=== PATIENT | male | born 1980 | race Caucasian/White ===

== ENCOUNTER 2022-12-12 07:22 | Emergency (ER) | payer OTHER, SELFPAY ==
--- NOTE | 2022-12-12 07:25 | ED_ITS ---
HPI - General Adult General Chief complaint: Dental/Oral Stated complaint: FACIAL SWELLING Time Seen by Provider: 12/12/22 07:25 History of Present Illness HPI narrative: Patient presents to emergency department complaining of right facial swelling. Patient states he had upper dental pain 2 weeks ago. He saw his dentist had x- rays done and told that his teeth were fine. He is had issues with his sinuses in the past. He had a polyp and needed to have it removed but he did not follow-up with the ENT. Patient states in the last week he started noticing and tiny amount of swelling but in the last 2 days it has worsened. He went to urgent care and was started on Augmentin yesterday he has taken 2 doses. He was also given Claritin with decongestant and Flonase which she has been using. Patient is here today as swelling has progressed.He does not feel nasal congestion.He denies any drainage. Related Data Home Medications Medication Instructions Recorded Confirmed amoxicillin 875 mg-potassium 1 tab PO Q12H 12/12/22 12/12/22 clavulanate 125 mg tablet escitalopram oxalate 10 mg tablet 10 mg PO QDAY 12/12/22 12/12/22 fluticasone propionate 50 1 spray intranasal Q12H 12/12/22 12/12/22 mcg/actuation nasal spray,suspension Previous Rx's Medication Instructions Recorded clindamycin HCl 150 mg capsule 150 mg PO Q6H 10 days #40 caps 12/12/22 clindamycin HCl 300 mg capsule 300 mg PO Q6H 10 days #40 caps 12/12/22 hydrocodone 5 mg-acetaminophen 325 1 tab PO Q6H PRN pain 3 days #14 12/12/22 mg tablet tabs ibuprofen 800 mg tablet 800 mg PO Q8H PRN pain #20 tabs 12/12/22 Allergies Allergy/AdvReac Type Severity Reaction Status Date / Time No Known Drug Allergies Allergy Verified 12/12/22 07:35 Review of Systems ROS Status of ROS 10 or more systems reviewed and unremarkable except as noted in history and below Exam Narrative Exam Narrative: Nurses notes and vital signs reviewed and patient is not hypoxic. General: Nontoxic, Well-appearing and in no apparent distress. Skin: Warm, dry, no pallor noted. No Rash Head: Normocephalic, atraumatic. Neck: Supple, non-tender. Eye: Pupils are equal, round and EOMI. No scleral icterus. Ears, Nose, Mouth, and Throat: TM clear, no posterior oropharynx erythema or nasal mucosal hypertrophy, uvula is mid-line Oral mucosa is moist, There is no drainable abscess noted to the gums. There is fullness to the right axilla over 4-5-6.Tenderness is noted. There is puffiness extending superiorly to the infraorbital rim there is no erythema noted. There is no fluctuance noted. No trismus, no tongue elevation. Cardiovascular: Regular Rate and Rhythm without murmur, gallop or rub. Respiratory: No accessory muscle use or respiratory distress. Lungs are clear to auscultation, no wheezing, rales or rhonchi Chest Wall: no tenderness Back: No midline thoracic or lumbar vertebral tenderness. No CVA tenderness Musculoskeletal: normal ROM, no calf or popliteal tenderness, no lower extremity edema/swelling GI: Abdomen is soft, non-distended. Normal bowel sounds. No masses appreciated. No tenderness to palpation. No rebound, guarding, or rigidity noted. Neurological: A&O x4. No cranial nerve dysfunction observed. No truncal ataxia. Moves all extremities. Sensation intact. Psychiatric: Cooperative and interactive. Normal mood and affect. Constitutional Vital Signs, click to edit/add: Last Vital Signs Temp 98.2 F 12/12/22 07:32 Pulse 82 12/12/22 07:32 Resp 18 12/12/22 07:32 BP 156/96 H 12/12/22 07:32 Pulse Ox 98 12/12/22 07:32 O2 Del Method Room Air 12/12/22 07:32 Course Vital Signs Vital signs: Vital Signs Temperature 98.2 F 12/12/22 07:32 Pulse Rate 82 12/12/22 07:32 Respiratory Rate 18 12/12/22 07:32 Blood Pressure 156/96 H 12/12/22 07:32 Pulse Oximetry 98 12/12/22 07:32 Oxygen Delivery Method Room Air 12/12/22 07:32 Temperature 98.2 F 12/12/22 07:32 Pulse Rate 82 12/12/22 07:32 Respiratory Rate 18 12/12/22 07:32 Blood Pressure 156/96 H 12/12/22 07:32 Pulse Oximetry 98 12/12/22 07:32 Oxygen Delivery Method Room Air 12/12/22 07:32 Medical Decision Making MDM Narrative Medical decision making narrative: Patient had an IV established and given clindamycin 900 mg IV. The patient had a CT scan of the facial bones with IV contrast which shows: Patient Name: MALINDA SORIANO MRN: [id number] date: 1980 Sex: M Assigned Patient Location: ER Current Patient Location: ED.MAIN Accession/Order Number: [id number] Exam Date: 12/12/2022 08:12 Report Date: 12/12/2022 08:39 At the request of: CISCO MAXWELL Procedure: CT facial bones w con CT facial bones w con, 12/12/2022 8:12 AM EDT, [facility]001 INDICATION: r facial swelling COMPARISON: CT of the sinuses from 07/23/2021.. TECHNIQUE: CT examination of the maxillofacial region is performed with administration of water soluble intravenous contrast. Axial images were obtained with reconstructions in the sagittal and coronal planes. Dose reduction techniques were achieved by using automated exposure control and/or adjustment of mA and /or kV according to patient size and/or use of iterative reconstruction technique. FINDINGS: No acute fracture is identified. There has been development of focal lucency surrounding the roots of the right maxillary incisor and first bicuspid, which can be seen with periapical abscess. There is thickening of the overlying soft tissues, without drainable fluid collection. There is also swelling of the superficial soft tissues with mild increased density consistent with cellulitis. There is moderate mucosal thickening in the right maxillary antrum, increased compared to the prior study. A polyp or mucous retention cyst is again seen in the inferior aspect of the left maxillary antrum. There is slight mucosal thickening in the anterior ethmoid air cells. No fluid levels are identified. The mandible and temporomandibular joints appear unremarkable. The orbital soft tissues are within normal limits. No radiopaque foreign bodies are identified. IMPRESSION: There is lucency surrounding the roots of the right maxillary incisor and first bicuspid which can be seen with periapical abscess. There is also evidence of overlying phlegmon and cellulitis without drainable fluid collection. Mild paranasal sinus disease, increased within the right maxillary antrum. Electronically authenticated by: FRANCI NARAYAN Date: 12/12/2022 08:39 all results discussed with patient. Patient Is nontoxic. He'll be given a prescription for clindamycin 450 mg every 6 hours. Patient is prescribed ibuprofen 800 mg and [place]. Patient is advised follow-up with dentist, and ENT as scheduled. At this time the patient is without objective evidence of an acute process requiring hospitalization or inpatient management. The patient has remained hemodynamically stable. No additional indication for emergent studies at this time. I answered all questions. Discussed discharge instructions including standard anticipatory guidance and what should prompt a return to the emergency department, including if they get worse are not getting better or develops any new or concerning symptoms. I've given them specific time frame in which to follow-up, and who to follow-up with. The patient demonstrates understanding. Patient is nontoxic and stable for discharge with outpatient follow-up. This note was created with the assistance of a speech recognition program. Although the intention is to generate documents that actually reflects the co ntent of the visit, no guarantees can be provided that every mistake has been identified and corrected by editing. Discharge Plan Discharge Chief Complaint: Dental/Oral Clinical Impression: Cellulitis and abscess of face, Dental abscess Patient Disposition: Home, Self-Care Time of Disposition Decision: 08:47 Condition: Good Mode of Transportation: Private Vehicle Prescriptions / Home Meds: New clindamycin HCl 150 mg capsule 150 mg PO Q6H 10 Days Qty: 40 0RF clindamycin HCl 300 mg capsule 300 mg PO Q6H 10 Days Qty: 40 0RF ibuprofen 800 mg tablet 800 mg PO Q8H PRN (Reason: pain) Qty: 20 0RF hydrocodone-acetaminophen 5-325 mg tablet 1 tab PO Q6H PRN (Reason: pain) 3 Days Qty: 14 0RF No Action amoxicillin-pot clavulanate 875-125 mg tablet 1 tab PO Q12H escitalopram oxalate 10 mg tablet 10 mg PO QDAY fluticasone propionate 50 mcg/actuation spray,suspension 1 spray INTRANASAL Q12H Instructions: Dental Abscess (ED), Cellulitis (ED) Additional Instructions: Follow-up with the dentist next week. Stand Alone Forms: Portal Instructions Referrals: Eduardo Andino DO [Primary Care Provider] - 1 week
[2022-12-12 07:32] VITALS: BP 156/96; PULSE 82; RESP 18; TEMP 36.8; O2SAT 98; BMI 20.9
[2022-12-12] MEDS: KETOROLAC TROMETHAMINE 30 MG/ML VIAL IVP (07:58)
[2022-12-12] MEDS: CLINDAMYCIN PHOSPHATE/D5W 900 MG/50 ML PIGGYBACK 100 MG IV (08:18)
--- NOTE | 2022-12-12 08:19 | CT_ITS ---
The [address] [address] Patient Name: MALINDA SORIANO MRN: [id number] date: 1980 Sex: M Assigned Patient Location: ER Current Patient Location: ED.MAIN Accession/Order Number: [id number] Exam Date: 12/12/2022 08:12 Report Date: 12/12/2022 08:39 At the request of: CISCO MAXWELL Procedure: CT facial bones w con CT facial bones w con, 12/12/2022 8:12 AM EDT, [facility]001 INDICATION: r facial swelling COMPARISON: CT of the sinuses from 07/23/2021.. TECHNIQUE: CT examination of the maxillofacial region is performed with administration of water soluble intravenous contrast. Axial images were obtained with reconstructions in the sagittal and coronal planes. Dose reduction techniques were achieved by using automated exposure control and/or adjustment of mA and /or kV according to patient size and/or use of iterative reconstruction technique. FINDINGS: No acute fracture is identified. There has been development of focal lucency surrounding the roots of the right maxillary incisor and first bicuspid, which can be seen with periapical abscess. There is thickening of the overlying soft tissues, without drainable fluid collection. There is also swelling of the superficial soft tissues with mild increased density consistent with cellulitis. There is moderate mucosal thickening in the right maxillary antrum, increased compared to the prior study. A polyp or mucous retention cyst is again seen in the inferior aspect of the left maxillary antrum. There is slight mucosal thickening in the anterior ethmoid air cells. No fluid levels are identified. The mandible and temporomandibular joints appear unremarkable. The orbital soft tissues are within normal limits. No radiopaque foreign bodies are identified. CT/CT facial bones w con IMPRESSION: There is lucency surrounding the roots of the right maxillary incisor and first bicuspid which can be seen with periapical abscess. There is also evidence of overlying phlegmon and cellulitis without drainable fluid collection. Mild paranasal sinus disease, increased within the right maxillary antrum. Electronically authenticated by: FRANCI NARAYAN Date: 12/12/2022 08:39
== END 2022-12-12 09:03 | disposition home or self-care (01) ==
PROVIDERS: Emergency Provider Emergency Medicine; PCP Internal Medicine
DX: L03.211 Cellulitis of face (principal); L02.01 Cutaneous abscess of face; K04.7 Periapical abscess without sinus; Z79.899 Other long term (current) drug therapy
CPT/HCPCS: 70487; 96365; 96375; 99285; Q9967

== ENCOUNTER 2023-10-15 10:12 | Outpatient (OUT) | payer BC, SELFPAY ==
[2023-10-15 10:31] LABS: Basophils Absolute Auto 0.1 10^3/uL (0.0-0.1); Basophils Percent Auto 1.2 % (0.2-2.0); Eosinophils Absolute Auto 0.2 10^3/uL (0.0-0.7); Eosinophils Percent Auto 3.3 % (0.9-7.0); Hematocrit 40.3 % (42.0-54.0); Hemoglobin 13.4 g/dL (14.0-18.0); Immature Granulocytes Abs Auto 0.02 10^3/uL (0.00-0.03); Immature Granulocytes Pct Auto 0.3 % (0.0-0.5); Lymphocytes Absolute Auto 1.9 10^3/uL (1.2-3.8); Lymphocytes Percent Auto 33.4 % (20.5-60.0); Mean Corpuscular HGB Conc 33.3 g/dL (29.9-35.2); Mean Corpuscular Hemoglobin 30.8 pg (25.9-34.0); Mean Corpuscular Volume 92.6 fL (80.0-94.0); Mean Platelet Volume 10.1 fL (9.5-13.5); Monocytes Absolute Auto 0.5 10^3/uL (0.3-0.8); Monocytes Percent Auto 9.1 % (1.7-12.0); Neutrophils Absolute Auto 3.1 10^3/uL (1.4-6.5); Neutrophils Percent Auto 52.7 % (43.0-75.0); Platelet Count 227 10^3/uL (150-450); Red Blood Count 4.35 10^6/uL (4.70-6.10); Red Cell Distribution Width 12.5 % (11.0-15.0); White Blood Count 5.8 10^3/uL (4.0-11.0)
[2023-10-15 11:48] LABS: Alanine Aminotransferase 32 U/L (16-63); Albumin Globulin Ratio 1.1; Albumin Level 3.9 g/dL (3.4-5.0); Alkaline Phosphatase 87 U/L (46-116); Anion Gap 9.4; Aspartate Amino Transferase 23 U/L (15-37); BUN Creatinine Ratio 21.1; Bilirubin Total 0.4 mg/dL (0.2-1.0); Calcium 8.9 mg/dL (8.5-10.1); Carbon Dioxide 30.6 mmol/L (21.0-32.0); Chloride 103 mmol/L (98-107); Chol HDL Ratio 2.5; Cholesterol 169 mg/dL (<=200); Estimated GFR (African America >60 (>=60); Estimated GFR (Non-African Ame >60 (>=60); Globulin 3.5 g/dL; Glucose 92 mg/dL (74-106); HDL Cholesterol 68 mg/dL (40-60); Sodium 139 mmol/L (136-145); Total Protein 7.4 g/dL (6.4-8.2); Triglycerides 30 mg/dL (<=150)
== END 2023-10-15 10:13 | disposition home or self-care (01) ==
LOC: LAB 10:14
PROVIDERS: PCP Internal Medicine; Visit Provider Internal Medicine
DX: Z00.00 Encounter for general adult medical examination without abnormal findings (principal)
CPT/HCPCS: 36415; 80053; 80061; 85025

== ENCOUNTER 2023-11-02 07:52 | Outpatient (OUT) | payer BC, SELFPAY ==
--- NOTE | 2023-11-02 07:55 | CT_ITS ---
The [address] [address] Patient Name: MALINDA SORIANO MRN: [facility]:[id number] date: 1980 Sex: M Assigned Patient Location: CT Current Patient Location: Accession/Order Number: [id number] Exam Date: 11/02/2023 08:03 Report Date: 11/03/2023 05:47 At the request of: CHANTE ROMERO Procedure: CT sinus wo con EXAMINATION: CT sinus wo con HISTORY: Sinusitis COMPARISON: CT facial bones 12/12/2022 TECHNIQUE: Axial and Coronal CT images were created without and/or with IV contrast as indicated by examination type. Dose reduction techniques were achieved by using automated exposure control and/or adjustment of mA and/or kV according to patient size and/or use of iterative reconstruction technique. FINDINGS: MAXILLARY SINUSES: Mild mucosal thickening within right maxillary sinus. 2.4 cm mucocele versus retention cyst within left maxillary sinus without appreciable mucosal thickening. Patent but narrowed ostia. No significant anomalous inferior orbital ethmoid (Chandrika) air cells. ETHMOID SINUSES: No significant mucosal thickening or fluid. Fovea ethmoidali and lamina papyracea are symmetric and intact. SPHENOID SINUSES: No significant mucosal thickening or fluid. Sphenoethmoidal recesses are patent. No bony dehiscence. FRONTAL SINUSES: No significant mucosal thickening or fluid. Frontal recesses are patent. NASAL FOSSA: 4 mm leftward deviation of the nasal septum. No franklin bullosa or paradoxical turbinates are identified. OTHER: Negative. Limited views of the skull base and orbits are unremarkable. CT/CT sinus wo con IMPRESSION: 1. Bilateral maxillary chronic sinusitis; significantly improved. Electronically authenticated by: FREEMAN MCBRIDE Date: 11/03/2023 05:47
--- OUTSIDE RECORDS SUMMARY | 2023-11-02 07:56 | XMS_ITS | CCD ---
Author Organization [facility] Care Team Providers Care Block And Case Maker Name Role Phone SINA, DR SHARIF Primary Care Unavailable BALL, DR SHARIF Admitting Unavailable BALL, DR SHARIF Attending Unavailable BALL, DR SHARIF Consulting Unavailable ZIEBER, DR FREEMAN Pearson Consulting Unavailable TIMMIS, DR INGRAM Attending Unavailable TIMMIS, DR INGRAM Consulting Unavailable BALL, DR SHARIF Primary Care Unavailable TIMMIS, DR INGRAM Admitting Unavailable ZIEBER, DR FREEMAN Pearson Consulting Unavailable BALL, DR SHARIF Primary Care Unavailable BALL, DR SHARIF Admitting Unavailable BALL, DR SHARIF Attending Unavailable BALL, DR SHARIF Consulting Unavailable BALL, DR SHARIF Primary Care Unavailable BALL, DR SHARIF Admitting Unavailable BALL, DR SHARIF Attending Unavailable BALL, DR SHARIF Consulting Unavailable BALL, DR SHARIF Consulting Unavailable BALL, DR SHARIF Primary Care Unavailable BALL, DR SHARIF Admitting Unavailable BALL, DR SHARIF Attending Unavailable CASSIDY Starks Attending Provider DO Eduardo Mills Primary Care Provider LANRE Garcia Attending Provider Ciara Garcia Attending Eduardo Cortes Primary Care UnavailVijaya Carter Attending Unavailable Dena Cornejo Unavailable Allergies Allergy Classification Reported Allergen(s) Allergy Type Date of Onset Reaction(s) Facility (2 sources) Sulfamethoxazole / Trimethoprim Drug Allergy 04-20-19 14 Unknown [facility] Repository (1 source) muscle relaxer; Translations: [muscle relaxer] Propensity to adverse reactions (disorder) 07-18-19 [facility] Repository (3 sources) meloxicam Drug Allergy 10-04-19 24 rash [facility] (1 source) patient allergy list reviewed by nurse or physicia Propensity to adverse reactions 09-22-19 Comment:Done [email or web address] Other (2 sources) Sulfamethoxazole Drug Allergy 10-04-19 24 Unknown Reaction [facility] (2 sources) Trimethoprim Drug Allergy 10-04-19 24 Unknown Reaction [facility] Medications Current Medications Medication Drug Class(es) Dates Sig (Normalized) Sig (Original) amoxicillin 875 mg / clavulanate 125 mg oral tablet (3 sources) Penicillin-class Antibacterial Start: 10-04-2023 take 1 tablet by mouth every twelve hours Amoxicillin-Pot Clavulanate Active 1 TAB PO Every 12 hours 23 01October 04, 2023 12:00am Start: 12-11-2022 take 1 tablet by dheeraj th every twelve hours Amoxicillin-Pot Clavulanate 875-125 MG 1 tablet Orally every 12 hrs for 10 days Dec, Active escitalopram 20 mg oral tablet (6 sources) Serotonin Reuptake Inhibitor Start: 09-25-2023 take 1 tablet by mouth once daily Escitalopram Oxalate Active 0 .ROUTE .COMPLEX September 25, 2023 1:09pm TAKE 1 TABLET BY MOUTH DAILY Start: 09-25-2023 End: 09-25-2023 take 20 mg by mouth once daily Escitalopram Oxalate Di scontinued 20 MG PO Daily September 25, 2023 12:00am September 25, 2023 1:09pm Start: 07-17-2022 take 20 mg by mouth once daily Escitalopram Oxalate Active 20 MG PO DAILY July 17, 2022 12:00am fluticasone propionate 0.05 mg/actuat metered dose nasal spray (1 source) Corticosteroid Start: 12-11-2022 take 2 spray(s) nasal route once daily Fluticasone Propionate 50 MCG/ACT 2 sprays in each nostril Nasally Once a day for 14 days Dec, Active Problems Active Problems Problem Classification Problem Date Documented Da te Episodic/Chronic Anxiety disorders (4 sources) Generalized anxiety disorder; Translations: [Generalized anxiety disorder] 10-04-2023 Chronic Blindness and vision defects (4 sources) Visual disturbance; Translations: [Other visual disturbances] 10-04-2023 Episodic Conditions associated with dizziness or vertigo (2 sources) Dizziness and giddiness; Translations: [Dizziness and giddiness] 10-04-2023 Episodic Deficiency and other anemia (5 sources) Anemia, unspecified; Translations: [ANEMIA UNSPECIFIED] Onset: 08-07-2021 Episodic Deficiency and other anemia (4 sources) Anemia; Translations: [Anemia, unspecified] 10-04-2023 Episodic Headache; including migraine (8 sources) Tension-type headache, unspecified, not intractable; Translations: [Tension-type headache] Onset: 04-29-2022 Chronic Headache; including migraine (1 source) Headache; Translations: [Headache, unspecified] Episodic Open wounds of head; neck; and trunk (2 sources) Laceration of head; Translations: [Laceration without foreign body of unspecified part of head, initial encounter] 07-21-2022 Episodic Osteoarthritis (3 sources) Localized, primary osteoarthritis of the hand; Translations: [Bilateral primary osteoarthritis of first carpometacarpal joints] Onset: 09-21-2017 10-04-2023 Chronic Other acquired deformities (1 source) Acquired deformity of left forearm; Translations: [Unspecified acquired deformity of left forearm] Episodic Other acquired deformities (2 sources) Acquired deformity of lower leg; Translations: [Unspecified acquired deformity of left lower leg] 10-04-2023 Episodic Other acquired deformities (2 sources) Acquired forearm deformity; Translations: [Unspecified acquired deformity of left forearm] 10-04-2023 Episodic Other ear and sense organ disorders (3 sources) Bilateral tinnitus; Translations: [Tinnitus, bilateral] 10-04-2023 Episodic Other gastrointestinal disorders (1 source) Bloating symptom; Translations: [Abdominal distension (gaseous)] Episodic Other gastrointestinal disorders (1 source) Abdominal bloating; Translations: [Abdominal distension (gaseous)] 10-04-2023 Episodic Other nervous system disorders (1 source) Carpal tunnel syndrome; Translations: [Carpal tunnel syndrome, right upper limb] Chronic Other nervous system disorders (2 sources) Carpal tunnel syndrome of right wrist; Translations: [Carpal tunnel syndrome, right upper limb] 10-04-2023 Chronic Other nervous system disorders (1 source) Impaired cognition; Translations: [Other symptoms and signs involving cognitive functions and awareness] Episodic Other nervous system disorders (2 sources) Anesthesia of skin; Translations: [Anesthesia of skin] 10-04-2023 Episodic Other nervous system disorders (1 source) Paresthesia; Translations: [Paresthesia of skin] Episodic Other nervous system disorders (1 source) Pins and needles; Translations: [Numbness and tingling in left arm] Episodic Other nervous system disorders (2 sources) Paresthesia of upper limb; Translations: [Anesthesia of skin] 10-04-2023 Episodic Other nutritional; endocrine; and metabolic disorders (3 sources) Overweight; Translations: [Overweight] 10-04-2023 Episodic Other screening for suspected conditions (not mental disorders or infectious disease) (1 source) Encounter for screening for malignant neoplasm of colon; Translations: [Special screening for malignant neoplasms of colon] 10-06-2023 Episodic Other upper respiratory infections (13 sources) Chronic maxillary sinusitis; Translations: [Chronic sinusitis, unspecified] Onset: 06-05-2021 Chronic Other upper respiratory infections (2 sources) Acute maxillary sinusitis; Translations: [Acute maxillary sinusitis, unspecified] Episodic Paralysis (1 source) Hemiplegia of nondominant side; Translations: [Unspecified hemiplegia affecting nondominant side] Chronic Spondylosis; intervertebral disc disorders; other back problems (2 sources) Cervical spondylosis without myelopathy; Translations: [Spondylosis without myelopathy or radiculopathy, cervical region] Onset: 09-21-2017 10-04-2023 Chronic Unclassified (1 source) Non-healing surgical wound; Translations: [Non-healing surgical wound] Viral infection (1 source) Viral disease; Translations: [Viral infection, unspecified] Episodic Past or Other Problems Problem Classification Problem Date Documented Da te Episodic/Chronic Abdominal pain (1 source) Right lower quadrant pain; Translations: [Right lower quadrant pain] Onset: 05-09-2015 Episodic Acute bronchitis (1 source) Acute bronchitis; Translations: [Acute bronchitis, unspecified] Onset: 2014 Episodic Nausea and vomiting (1 source) Nausea; Translations: [Nausea] Onset: 06-20-2013 Episodic Nonspecific chest pain (1 source) Chest pain; Translations: [Chest pain, unspecified] Onset: 2014 Episodic Other connective tissue disease (1 source) Myalgia/myositis - multiple; Translations: [Unspecified myalgia and myositis] Onset: 06-20-2013 Episodic Spondylosis; intervertebral disc disorders; other back problems (1 source) Low back pain; Translations: [Lumbago] Onset: 06-20-2014 Episodic Sprains and strains (1 source) Neck sprain; Translations: [Strain of muscle, fascia and tendon at neck level, initial encounter] Onset: 09-21-2017 Episodic Results Test Name Value Interpretation Reference Range Facil ity CBC AUTO DIFFon 04-29-2022 BASO # 0.0 103/ul Normal 0.0-0.1 [facility] Comment on above: Performed By: #### C BC #### [facility] [address] [address] [address] Alexander Sanchez Basophils/100 WBC (Bld) 0.6 % Normal 0.2-2.0 [facility] Comment on above: Performed By: #### C BC #### [facility] [address] [address] [address] Alexander Sanchez EO # 0.0 103/ul Normal 0.0-0.7 [facility] Comment on above: Performed By: #### C BC #### [facility] [address] [address] [address] Alexander Sanchez Eosinophils/100 WBC (Bld) 1.2 % Normal 0.9-7.0 [facility] Comment on above: Performed By: #### C BC #### [facility] [address] [address] [address] Alexander Sanchez Erythrocyte distribution width (RBC) [Ratio] 12.4 % Normal 11.0-15.0 [facility] Comment on above: Performed By: #### C BC #### [facility] [address] [place] [address] Dr. Alexander Sanchez Hematocrit (Bld) [Volume fraction] 39.4 % Critically low 42.0-54.0 [facility] Comment on above: Performed By: #### C BC #### [facility] [address] [address] [address] Alexander Sanchez Hemoglobin (Bld) [Mass/Vol] 13.5 g/dL Critically low 14.0-18.0 [facility] Comment on above: Performed By: #### C BC #### [facility] [address] [address] [address] Alexander Sanchez IG # 0.01 10e3/ul Normal 0.00-0.03 [facility] Comment on above: Performed By: #### C BC #### [facility] [address] [place] [address] Dr. Alexander Sanchez IG % 0.3 % Normal 0.0-0.5 [facility] Comment on above: Performed By: #### C BC #### [facility] [address] [place] [address] Dr. Alexander Sanchez LYMPH # 1.2 103/ul Normal 1.2-3.8 [facility] Comment on above: Performed By: #### C BC #### [facility] [address] [place] [address] Dr. Alexander Sanchez Lymphocytes/100 WBC (Bld) 38.1 % Normal 20.5-60.0 [facility] Comment on above: Performed By: #### C BC #### [facility] [address] [place] [address] Dr. Alexander Sanchez MANUAL DIFF REQ NO Normal [facility] Comment on above: Performed By: #### C BC #### [facility] [address] [place] [address] Dr. Alexander Sanchez MCH (RBC) [Entitic mass] 30.2 pg Normal 25.9-34.0 [facility] Comment on above: Performed By: #### C BC #### [facility] [address] [place] [address] Dr. Alexander Sanchez MCHC (RBC) [Mass/Vol] 34.3 g/dL Normal 29.9-35.2 [facility] Comment on above: Performed By: #### C BC #### [facility] [address] [place] [address] Dr. Alexander Sanchez MCV (RBC) [Entitic vol] 88.1 fL Normal 80.0-94.0 [facility] Comment on above: Performed By: #### C BC #### [facility] [address] [place] [address] Dr. Alexander Sanchez MONO # 0.4 103/ul Normal 0.3-0.8 [facility] Comment on above: Performed By: #### C BC #### [facility] [address] [place] [address] Dr. Alexander Sanchez Monocytes/100 WBC (Bld) 11.5 % Normal 1.7-12.0 [facility] Comment on above: Performed By: #### C BC #### [facility] [address] [place] [address] Dr. Alexander Sanchez NEUT # 1.6 103/ul Normal 1.4-6.5 [facility] Comment on above: Performed By: #### C BC #### [facility] [address] [place] [address] Dr. Alexander Sanchez Neutrophils/100 WBC (Bld) 48.3 % Normal 43.0-75.0 [facility] Comment on above: Performed By: #### C BC #### [facility] [address] [place] [address] Dr. Alexander Sanchez Platelet mean volume (Bld) [Entitic vol] 10.0 fL Normal 9.5-13.5 [facility] Comment on above: Performed By: #### C BC #### [facility] [address] [place] [address] Dr. Alexander Sanchez PLT 162 103/ul Normal 150-450 [facility] Comment on above: Performed By: #### C BC #### [facility] [address] [place] [address] Dr. Alexander Sanchez RBC 4.47 106/ul Critically low 4.70-6.10 [facility] Comment on above: Performed By: #### C BC #### [facility] [address] [place] [address] Dr. Alexander Sanchez WBC 3.2 103/ul Critically low 4.0-11.0 [facility] Comment on above: Performed By: #### C BC #### [facility] [address] [place] [address] Dr. Alexander Sanchez FERRITINon 04-29-2022 Ferritin [Mass/Vol] 414.0 ng/mL Critically high 26.0-388.0 [facility] Comment on above: Performed By: #### F ETIBC, FERR, B12FOL #### [facility] [address] [place] [address] Dr. Alexander Sanchez IRON AND TIBCon 04-29-2022 % SATURATION 44.3 % Normal [facility] Comment on above: Performed By: #### F ETIBC, FERR, B12FOL #### [facility] [address] [place] [address] Dr. Alexander Sanchez Iron [Mass/Vol] 131.0 ug/dL Normal 65.0-175.0 [facility] Comment on above: Performed By: #### F ETIBC, FERR, B12FOL #### [facility] [address] [place] [address] Dr. Alexander Sanchez TIBC DIRECT 296.0 ug/dL Normal 250.0-450.0 [facility] Comment on above: Performed By: #### F ETIBC, FERR, B12FOL #### [facility] [address] [place] [address] Dr. Alexander Sanchez VIT B12 AND FOLATEon 023 Cobalamin (Vitamin B12) [Mass/Vol] 627.0 pg/mL Normal 193.0-986.0 [facility] Comment on above: Performed By: #### F ETIBC, FERR, B12FOL #### [facility] [address] [place] [address] Dr. Alexander Sanchez FOLATE 10.50 ng/mL Normal 8.60-58.90 [facility] Comment on above: Performed By: #### F ETIBC, FERR, B12FOL #### [facility] [address] [place] [address] Dr. Alexander Sanchez CBC AUTO DIFFon 03-03-2022 BASO # 0.1 103/ul Normal 0.0-0.1 [facility] Comment on above: Performed By: #### C BC #### [facility] [address] [place] [address] Dr. Alexander Sanchez Basophils/100 WBC (Bld) 1.3 % Normal 0.2-2.0 [facility] Comment on above: Performed By: #### C BC #### [facility] [address] [place] [address] Dr. Alexander Sanchez EO # 0.1 103/ul Normal 0.0-0.7 [facility] Comment on above: Performed By: #### C BC #### [facility] [address] [place] [address] Dr. Alexander Sanchez Eosinophils/100 WBC (Bld) 2.6 % Normal 0.9-7.0 [facility] Comment on above: Performed By: #### C BC #### [facility] [address] [place] [address] Dr. Alexander Sanchez Erythrocyte distribution width (RBC) [Ratio] 12.7 % Normal 11.0-15.0 [facility] Comment on above: Performed By: #### C BC #### [facility] [address] [place] [address] Dr. Alexander Sanchez Hematocrit (Bld) [Volume fraction] 39.1 % Critically low 42.0-54.0 [facility] Comment on above: Performed By: #### C BC #### [facility] [address] [place] [address] Dr. Alexander Sanchez Hemoglobin (Bld) [Mass/Vol] 13.3 g/dL Critically low 14.0-18.0 [facility] Comment on above: Performed By: #### C BC #### [facility] [address] [place] [address] Dr. Alexander Sanchez IG # 0.01 10e3/ul Normal 0.00-0.03 [facility] Comment on above: Performed By: #### C BC #### [facility] [address] [place] [address] Dr. Alexander Sanchez IG % 0.2 % Normal 0.0-0.5 [facility] Comment on above: Performed By: #### C BC #### [facility] [address] [place] [address] Dr. Alexander Sanchez LYMPH # 1.5 103/ul Normal 1.2-3.8 [facility] Comment on above: Performed By: #### C BC #### [facility] [address] [place] [address] Dr. Alexander Sanchez Lymphocytes/100 WBC (Bld) 33.1 % Normal 20.5-60.0 [facility] Comment on above: Performed By: #### C BC #### [facility] [address] [place] [address] Dr. Alexander Sanchez MANUAL DIFF REQ NO Normal [facility] Comment on above: Performed By: #### C BC #### [facility] [address] [place] [address] Dr. Alexander Sanchez MCH (RBC) [Entitic mass] 30.4 pg Normal 25.9-34.0 [facility] Comment on above: Performed By: #### C BC #### [facility] [address] [place] [address] Dr. Alexander Sanchez MCHC (RBC) [Mass/Vol] 34.0 g/dL Normal 29.9-35.2 [facility] Comment on above: Performed By: #### C BC #### [facility] [address] [place] [address] Dr. Alexander Sanchez MCV (RBC) [Entitic vol] 89.5 fL Normal 80.0-94.0 [facility] Comment on above: Performed By: #### C BC #### [facility] [address] [place] [address] Dr. Alexander Sanchez MONO # 0.4 103/ul Normal 0.3-0.8 [facility] Comment on above: Performed By: #### C BC #### [facility] [address] [place] [address] Dr. Alexander Sanchez Monocytes/100 WBC (Bld) 9.2 % Normal 1.7-12.0 [facility] Comment on above: Performed By: #### C BC #### [facility] [address] [place] [address] Dr. Alexander Sanchez NEUT # 2.5 103/ul Normal 1.4-6.5 [facility] Comment on above: Performed By: #### C BC #### [facility] [address] [place] [address] Dr. Alexander Sanchez Neutrophils/100 WBC (Bld) 53.6 % Normal 43.0-75.0 [facility] Comment on above: Performed By: #### C BC #### [facility] [address] [address] [address] Alexander Sanchez Platelet mean volume (Bld) [Entitic vol] 10.3 fL Normal 9.5-13.5 [facility] Comment on above: Performed By: #### C BC #### [facility] [address] [address] [address] Aleaxnder Sanchez PLT 230 103/ul Normal 150-450 [facility] Comment on above: Performed By: #### C BC #### [facility] [address] [place] [address] Dr. Alexander Sanchez RBC 4.37 106/ul Critically low 4.70-6.10 [facility] Comment on above: Performed By: #### C BC #### [facility] [address] [place] [address] Dr. Alexander Sanchez WBC 4.7 103/ul Normal 4.0-11.0 [facility] Comment on above: Performed By: #### C BC #### [facility] [address] [place] [address] Dr. Alexander Sanchez LIPID PROFILEon 03-03-2022 CHOL-HDL RATIO NORM SEE BELOW Normal [facility] Comment on above: Result Comment: 3.3 - 4.4 LOW RISK 4.4 - 7.1 AVERAGE RISK 7.1 - 11.0 MODERATE RISK >11.0 HIGH RISK Performed By: #### L IPID, CMP #### [facility] [address] [place] [address] Dr. Alexander Sanchez Cholesterol [Mass/Vol] 158 mg/dL Normal <=200 [facility] Comment on above: Performed By: #### L IPID, CMP #### [facility] [address] [place] [address] Dr. Alexander Sanchez Cholesterol in HDL [Mass/Vol] 70 mg/dL Critically high 40-60 [facility] Comment on above: Performed By: #### L IPID, CMP #### [facility] [address] [address] [address] Alexander Sanchez Cholesterol in LDL [Mass/Vol] 79.8 mg/dL Normal [facility] Comment on above: Performed By: #### L IPID, CMP #### [facility] [address] [place] [address] Dr. Alexander Sanchez Cholesterol.total/C holesterol in HDL [Mass ratio] 2.3 {ratio} Normal [facility] Comment on above: Performed By: #### L IPID, CMP #### [facility] [address] [place] [address] Dr. Alexander Sanchez HDL NORMAL > or = 60 mg/dl - LO W CARDIOVASCULAR RISK <40 mg/dl - HIGH CARDIOVASCULAR RISK Normal [facility] Comment on above: Performed By: #### L IPID, CMP #### [facility] [address] [place] [address] Dr. Alexander Sanchez LDL CALC NORMAL SEE BELOW Normal [facility] Comment on above: Result Comment: <100 mg/dl OPTIMAL 100 - 129 mg/dl NEAR OR ABOVE OPTIMAL 130 - 159 mg/dl BORDERLINE HIGH 160 - 189 mg/dl HIGH >190 mg/dl VERY HIGH Performed By: #### L IPID, CMP #### [facility] [address] [place] [address] Dr. Alexander Sanchez Triglyceride [Mass/Vol] 41 mg/dL Normal <=150 [facility] Comment on above: Performed By: #### L IPID, CMP #### [facility] [address] [place] [address] Dr. Alexander Sanchez VLDL CALC 8.2 mg/dL Normal [facility] Comment on above: Performed By: #### L IPID, CMP #### [facility] [address] [address] [address] Alexander Sanchez PROF 14(COMP METB)on 022 Albumin [Mass/Vol] 3.9 g/dL Normal 3.4-5.0 [facility] Comment on above: Performed By: #### L IPID, CMP #### [facility] [address] [place] [address] Dr. Alexander Sanchez Albumin/Globulin [Mass ratio] 1.1 {ratio} Normal [facility] Comment on above: Performed By: #### L IPID, CMP #### [facility] [address] [address] [address] Alexander Sanchez ALP [Catalytic activity/Vol] 80 U/L Normal 46-116 [facility] Comment on above: Performed By: #### L IPID, CMP #### [facility] [address] [address] [address] Alexander Sanchez ALT [Catalytic activity/Vol] 24 U/L Normal 16-63 [facility] Comment on above: Performed By: #### L IPID, CMP #### [facility] [address] [place] [address] Dr. Alexander Sanchez Anion gap [Moles/Vol] 10.6 mmol/L Normal [facility] Comment on above: Performed By: #### L IPID, CMP #### [facility] [address] [place] [address] Dr. Alexander Sanchez AST [Catalytic activity/Vol] 14 U/L Critically low 15-37 [facility] Comment on above: Performed By: #### L IPID, CMP #### [facility] [address] [place] [address] Dr. Alexander Sanchez Bilirubin [Mass/Vol] 0.4 mg/dL Normal 0.2-1.0 [facility] Comment on above: Performed By: #### L IPID, CMP #### [facility] [address] [address] [address] Alexander Sanchez Calcium [Mass/Vol] 9.0 mg/dL Normal 8.5-10.1 [facility] Comment on above: Performed By: #### L IPID, CMP #### [facility] [address] [place] [address] Dr. Alexander Sanchez Chloride [Moles/Vol] 103 mmol/L Normal 98-107 [facility] Comment on above: Performed By: #### L IPID, CMP #### [facility] [address] [place] [address] Dr. Alexander Sanchez CO2 [Moles/Vol] 31.2 mmol/L Normal 21.0-32.0 [facility] Comment on above: Performed By: #### L IPID, CMP #### [facility] [address] [place] [address] Dr. Alexander Sanchez Creatinine [Mass/Vol] 0.92 mg/dL Normal 0.70-1.30 [facility] Comment on above: Performed By: #### L IPID, CMP #### [facility] [address] [address] [address] Alexander Sanchez EGFR-AF CITIZEN OF [place] >60 Normal >=60 [facility] Comment on above: Performed By: #### L IPID, CMP #### [facility] [address] [place] [address] Dr. Alexander Sanchez EGFR-NON AF CITIZEN OF [place] >60 Normal >=60 [facility] Comment on above: Performed By: #### L IPID, CMP #### [facility] [address] [place] [address] Dr. Alexander Sanchez Globulin (S) [Mass/Vol] 3.5 g/dL Normal [facility] Comment on above: Performed By: #### L IPID, CMP #### [facility] [address] [place] [address] Dr. Alexander Sanchez Glucose [Mass/Vol] 98 mg/dL Normal 74-106 [facility] Comment on above: Performed By: #### L IPID, CMP #### [facility] [address] [place] [address] Dr. Alexander Sanchez Potassium [Moles/Vol] 3.8 mmol/L Normal 3.5-5.1 [facility] Comment on above: Performed By: #### L IPID, CMP #### [facility] [address] [place] [address] Dr. Alexander Sanchez Protein [Mass/Vol] 7.4 g/dL Normal 6.4-8.2 [facility] Comment on above: Performed By: #### L IPID, CMP #### [facility] [address] [place] [address] Dr. Alexander Sanchez Sodium [Moles/Vol] 141 mmol/L Normal 136-145 [facility] Comment on above: Performed By: #### L IPID, CMP #### [facility] [address] [place] [address] Dr. Alexander Sanchez Urea nitrogen [Mass/Vol] 12.0 mg/dL Normal 7.0-18.0 [facility] Comment on above: Performed By: #### L IPID, CMP #### [facility] [address] [place] [address] Dr. Alexander Sanchez Urea nitrogen/Creatinine [Mass ratio] 13.0 mg/mg Normal [facility] Comment on above: Performed By: #### L IPID, CMP #### [facility] [address] [place] [address] Dr. Alexander Sanchez CBC AUTO DIFFon 08-07-2021 BASO # 0.0 103/ul Normal 0.0-0.1 [facility] Comment on above: Performed By: #### C BC #### [facility] [address] [place] [address] Dr. Alexander Sanchez Basophils/100 WBC (Bld) 0.3 % Normal 0.2-2.0 [facility] Comment on above: Performed By: #### C BC #### [facility] [address] [place] [address] Dr. Alexander Sanchez EO # 0.0 103/ul Normal 0.0-0.7 [facility] Comment on above: Performed By: #### C BC #### [facility] [address] [place] [address] Dr. Alexander Sanchez Eosinophils/100 WBC (Bld) 0.3 % Critically low 0.9-7.0 [facility] Comment on above: Performed By: #### C BC #### [facility] [address] [place] [address] Dr. Alexander Sanchez Erythrocyte distribution width (RBC) [Ratio] 12.6 % Normal 11.0-15.0 [facility] Comment on above: Performed By: #### C BC #### [facility] [address] [place] [address] Dr. Alexander Sanchez Hematocrit (Bld) [Volume fraction] 41.3 % Critically low 42.0-54.0 [facility] Comment on above: Performed By: #### C BC #### [facility] [address] [place] [address] Dr. Alexander Sanchez Hemoglobin (Bld) [Mass/Vol] 13.9 g/dL Critically low 14.0-18.0 [facility] Comment on above: Performed By: #### C BC #### [facility] [address] [place] [address] Dr. Alexander Sanchez IG # 0.02 10e3/ul Normal 0.00-0.03 [facility] Comment on above: Performed By: #### C BC #### [facility] [address] [place] [address] Dr. Alexander Sanchez IG % 0.3 % Normal 0.0-0.5 [facility] Comment on above: Performed By: #### C BC #### [facility] [address] [place] [address] Dr. Alexander Sanchez LYMPH # 0.9 103/ul Critically low 1.2-3.8 [facility] Comment on above: Performed By: #### C BC #### [facility] [address] [place] [address] Dr. Alexander Sanchez Lymphocytes/100 WBC (Bld) 13.0 % Critically low 20.5-60.0 [facility] Comment on above: Performed By: #### C BC #### [facility] [address] [place] [address] Dr. Alexander Sanchez MANUAL DIFF REQ NO Normal [facility] Comment on above: Performed By: #### C BC #### [facility] [address] [place] [address] Dr. Alexander Sanchez MCH (RBC) [Entitic mass] 30.2 pg Normal 25.9-34.0 [facility] Comment on above: Performed By: #### C BC #### [facility] [address] [place] [address] Dr. Alexander Sanchez MCHC (RBC) [Mass/Vol] 33.7 g/dL Normal 29.9-35.2 [facility] Comment on above: Performed By: #### C BC #### [facility] [address] [address] [address] Alexander Sanchez MCV (RBC) [Entitic vol] 89.8 fL Normal 80.0-94.0 [facility] Comment on above: Performed By: #### C BC #### [facility] [address] [address] [address] Alexander Sanchez MONO # 0.6 103/ul Normal 0.3-0.8 [facility] Comment on above: Performed By: #### C BC #### [facility] [address] [place] [address] Dr. Alexander Sanchez Monocytes/100 WBC (Bld) 7.8 % Normal 1.7-12.0 [facility] Comment on above: Performed By: #### C BC #### [facility] [address] [place] [address] Dr. Alexander Sanchez NEUT # 5.6 103/ul Normal 1.4-6.5 [facility] Comment on above: Performed By: #### C BC #### [facility] [address] [place] [address] Dr. Alexander Sanchez Neutrophils/100 WBC (Bld) 78.3 % Critically high 43.0-75.0 [facility] Comment on above: Performed By: #### C BC #### [facility] [address] [place] [address] Dr. Alexander Sanchez Platelet mean volume (Bld) [Entitic vol] 9.9 fL Normal 9.5-13.5 [facility] Comment on above: Performed By: #### C BC #### [facility] [address] [place] [address] Dr. Alexander Sanchez PLT 227 103/ul Normal 150-450 [facility] Comment on above: Performed By: #### C BC #### [facility] [address] [place] [address] Dr. Alexander Sanchez RBC 4.60 106/ul Critically low 4.70-6.10 [facility] Comment on above: Performed By: #### C BC #### [facility] [address] [place], [place] [address] Dr. Alexander Sanchez WBC 7.2 103/ul Normal 4.0-11.0 [facility] Comment on above: Performed By: #### C BC #### [facility] [address] [place], [place] [address] SINUSES WO CONon 07-24-[address] SINUSES WO CON EXAMINATION: CT SINUSES WO CON HISTORY: Chronic maxillary sinusitis ; right maxillary sinus pressure COMPARISON: CT sinuses 06/05/2021 TECHNIQUE: Axial and Coronal CT images were created without IV contrast. Dose reduction techniques were achieved by using automated exposure control and/or adjustment of mA and/or kV according to patient size and/or use of iterative reconstruction technique. FINDINGS: MAXILLARY SINUSES: Mild, 2 mm mucosal thickening within base of right maxillary sinus. 2.1 cm urocele/retention cysts within base of left maxillary sinus. ETHMOID SINUSES: No significant mucosal thickening or fluid. Fovea ethmoidali and lamina papyracea are symmetric and intact. SPHENOID SINUSES: No significant mucosal thickening or fluid. Sphenoethmoidal recesses are patent. No bony dehiscence. FRONTAL SINUSES: No significant mucosal thickening or fluid. Frontal recesses are patent. NASAL FOSSA: Minimal leftward deviation of the nasal septum. No franklin bullosa or paradoxical turbinates are identified. OTHER: Negative. Limited views of the skull base and orbits are unremarkable. IMPRESSION: 1. Mild bilateral maxillary chronic sinusitis; slightly improved compared to prior study. Electronically authenticated by: FREEMAN MCBRIDE Date: 2021-07-23 10:30 Normal [facility] CT SINUSES WO CONon 06-06-[address] SINUSES WO CON EXAMINATION: CT SINUSES WO CON HISTORY: Chronic sinusitis ; right upper tooth pain, questionable abnormality within sinuses on panoramic dental views COMPARISON: No relevant comparison available. TECHNIQUE: Axial and Coronal CT images were created without IV contrast. Dose reduction techniques were achieved by using automated exposure control and/or adjustment of mA and/or kV according to patient size and/or use of iterative reconstruction technique. FINDINGS: MAXILLARY SINUSES: Mucosal thickening within base of right maxillary sinus up to 9 mm in thickness. Left sinus contains a 2.5 cm mucocele/inclusion cyst. Narrowing of the ostia bilaterally. ETHMOID SINUSES: No significant mucosal thickening or fluid. Fovea ethmoidali and lamina papyracea are symmetric and intact. SPHENOID SINUSES: No significant mucosal thickening or fluid. Sphenoethmoidal recesses are patent. No bony dehiscence. FRONTAL SINUSES: No significant mucosal thickening or fluid. Frontal recesses are patent. NASAL FOSSA: 4 mm leftward deviation of the nasal septum. No franklin bullosa or paradoxical turbinates are identified. OTHER: Negative. Limited views of the skull base and orbits are unremarkable. IMPRESSION: 1. Bilateral maxillary chronic sinusitis. No mass. Electronically authenticated by: FREEMAN MCBRIDE Date: 2021-06-05 09:00 [facility] Vital Signs Date Time Vital Sign Value Performing Clinician Facility 10-06-2023 11:30-0400 Body height 185.42 cm [facility] 10-06-2023 11:30-0400 Body mass index (BMI) [Ratio] 27.6 kg/m2 [facility] 10-06-2023 11:30-0400 Body weight 94.8 kg [facility] 10-06-2023 11:30-0400 Diastolic blood pressure 88 mm[Hg] [facility] 10-06-2023 11:30-0400 Heart rate 67 /min [facility] 10-06-2023 11:30-0400 Respiratory rate 12 /min [facility] 10-06-2023 11:30-0400 Systolic blood pressure 150 mm[Hg] [facility] 10-04-2023 10:58-0400 Body height 185.42 cm [facility] 10-04-2023 10:58-0400 Body mass index (BMI) [Ratio] 23.7 kg/m2 [facility] 10-04-2023 10:58-0400 Body temperature 98 [degF] [facility] 10-04-2023 10:58-0400 Body weight 81.64 kg [facility] 10-04-2023 10:58-0400 Diastolic blood pressure 74 mm[Hg] [facility] 10-04-2023 10:58-0400 Heart rate 58 /min [facility] 10-04-2023 10:58-0400 Respiratory rate 18 /min [facility] 10-04-2023 10:58-0400 SaO2% (BldA) [Mass fraction] 98 % [facility] 10-04-2023 10:58-0400 Systolic blood pressure 135 mm[Hg] [facility] 12-11-2022 09:00-0400 Body height 185.42 cm Dena Cornejo Other [facility] Other 12-11-2022 09:00-0400 Body mass index (BMI) [Ratio] 26.25 kg/m2 Dena Cornejo Other [email or web address] Other 12-11-2022 09:00-0400 Body temperature 99.3 [degF] Dena Cornejo Other [email or web address] Other 12-11-2022 09:00-0400 Body weight 90.27 kg Dena Cornejo Other [email or web address] Other 12-11-2022 09:00-0400 Diastolic blood pressure 78 mm[Hg] Dena Cornejo Other [email or web address] Other 12-11-2022 09:00-0400 Respiratory rate 18 /min Dena Cornejo Other [email or web address] Other 12-11-2022 09:00-0400 SaO2% (BldA) [Mass fraction] 98 % Dena Cornejo Other [email or web address] Other 12-11-2022 09:00-0400 Systolic blood pressure 120 mm[Hg] Dena Cornejo Other [email or web address] Other 07-17-2022 11:10-0400 Body weight 83.92 kg DO Eduardo Ball Work Phone: [facility] 07-17-2022 11:10-0400 Diastolic blood pressure 70 mm[Hg] DO Eduardo Ball Work Phone: [facility] 07-17-2022 11:10-0400 Heart rate 78 /min DO Eduardo Ball Work Phone: [facility] 07-17-2022 11:10-0400 Respiratory rate 16 /min DO Eduardo Ball Work Phone: [facility] 07-17-2022 11:10-0400 SaO2% (BldA) [Mass fraction] 97 % DO Eduardo Ball Work Phone: [facility] 07-17-2022 11:10-0400 Systolic blood pressure 128 mm[Hg] DO Eduardo Ball Work Phone: [facility] Encounters Encounter Date Encounter Type Care Provider Facility Start: 10-06-2023 End: 10-06-2023 ambulatory [facility] Work Phone: Start: 10-06-2023 End: 10-06-2023 Encounter for general adult medical examination without abnormal findings [facility] Start: 10-06-2023 End: 10-06-2023 Patient encounter procedure [facility] Work Phone: Start: 10-04-2023 End: 10-04-2023 ambulatory [facility] Work Phone: Start: 10-04-2023 End: 10-04-2023 Patient encounter procedure [facility] Work Phone: Start: 09-25-2023 Non-patient / Non-visit [facility] Work Phone: Start: 12-11-2022 End: 12-11-2022 ambulatory Dena Cornejo Other [email or web address] Other Start: 12-11-2022 Office outpatient vi sit 15 minutes Dena Cornejo [facility] Start: 07-25-2022 End: 07-25-2022 ambulatory Ciara Garcia Facility:[facility] Start: 07-25-2022 End: 07-25-2022 ambulatory DO Eduardo Andino Work Phone: [facility] Work Phone: Start: 07-25-2022 End: 07-25-2022 Patient encounter procedure DO Eduardo Sina Work Phone: [facility] Work Phone: Start: 07-17-2022 End: 07-17-2022 ambulatory Vijayamicaela Mellokarol Facility:[facility] Start: 07-17-2022 End: 07-17-2022 Patient encounter procedure DO Eduardo Andino Work Phone: [facility] Work Phone: Start: 04-29-2022 End: 04-30-[address] EDUARDO ANDINO Facility:[facility] Start: 03-08-2022 Encounter for genera l adult medical examination without abnormal findings DR EDUARDO ANDINO [facility] Start: 03-06-2022 Adult health examination Dena Cornejo Other [employer] Other Start: 03-03-2022 End: 03-04-[address] EDUARDO ANDINO Facility:[facility] Start: 03-03-2022 End: 03-04-2022 Encounter for general adult medical examination without abnormal findings DR EDUARDO ANDINO Facility:[facility] Start: 08-07-2021 End: 08-08-[address] EDUARDO ANDINO Facility:[facility] Start: 07-23-2021 End: 07-24-[address] JUAN JOSE ROBERT Facility:[facility] Start: 06-05-2021 End: 06-06-[address] EDUARDO ANDINO Facility:[facility] Procedures Date Procedure Procedure Detail Performing Clinician Laboratory test resu lt abnormal Dena Cornejo Other Laboratory test resu lt abnormal Borderline Lyme serology Plan of Treatment Date Care Activity Detail Author Comprehensive metabo lic 2000 panel - Serum or Plasma [facility] enter [facility] Payers Date Payer Category Payer Self-pay 1980 Unknown [id number] 2.16.84 [id number] 1980 Unknown [id number] 2.16.84 [id number] 1978 Unknown [id number] 2.16.84 [id number] 1978 Unknown [id number] 2.16.84 [id number] 1978 Unknown [id number] 2.16.84 [id number] 1959 Unknown [id number] Unknown [id number] 2.16.84 [id number] Unknown [id number] 2.16.84 [id number] Unknown [facility] [id number] Unknown Rebecca HINKLE/HONEY [id number] Social History Date Type Detail Facility Tobacco smoking status NHIS Unknown if ever smoked [facility] Work Phone: Start: 1980 Sex Assigned At Male [place] Sex Assigned At Sex Assigned At [facility] Other Start: 10-04-2023 Tobacco smoking status NHIS Never smoked tobacco (finding) [facility] Evaluation note 12-11-2022 Note Date & Type Note Facility 12-11-2022 Evaluation note Encounter Date Diagnosis Assessment Notes Dec, Acute recurrent maxillary sinusitis (ICD-10 - J01.01) Discussed with patient concern for acute sinusitis on top of chronic sinusitis. Discussed importance of following up with ENT as chronic sinusitis is not typically bacterial in nature, may need sinus surgery as previously discussed. Claritin-D, Flonase encouraged. May use Tylenol or ibuprofen for discomfort. Will treat with Augmentin twice daily x10 days. Finish entire course. Probiotic supplement encouraged. Has follow-up with ENT next week. Patient verbalized understanding of treatment plan. [email or web address] Other Evaluation note Note Date & Type Note Facility Evaluation note Diagnosis Onset Date Laceration of head acute [facility] Work Phone: Evaluation note Note Date & Type Note Facility Evaluation note No assessment information availa ble [facility] Work Phone: Evaluation note Note Date & Type Note Facility Evaluation note Diagnosis Onset Date Sinusitis acute Screening for colon cancer n oneactive Wellness examination noneact arnoldo [facility] Work Phone: History general Narrative - Reported Note Date & Type Note Facility History general Narrative - Reported Type Medical History Chronic sinusitis Medical History Anemia Medical History GISELLE (generalized anxiety disorde r) Medical History Tension headache Surgical History Problem Title : past surgical history reviewed, Problem Description : past surgical history reviewed, Problem Comment : reviewed - no changes required, Problem Status : Resolved, Surgical History Problem Title : surg ical procedures, hx of, Problem Description : surgical procedures, hx of, Problem Comment : vasectomy 2012, Problem Status : Resolved, Surgical History Problem Title : VASE CTOMY, BILATERAL (56189), Problem Status : Active, [email or web address] Other Summary Purpose Family History Relationship Condition Age at Onset Recorded Date/T mariam father Unknown Malignant neoplasm Unknown Advance Directives Advance Directive Response Recorded Date/ Time Advance Directives No October 03 10:48am Advance Directive Response Recorded Date/ Time Advance Directives No October 05 11:24am Chief Complaint and Reason for Visit Chief Complaint Cut on head stapel removal Reason for Visit Laceration of head Chief Complaint Amb Documentation Possible URI Chief Complaint Amb Documentation Possible URI wellness Reason for Visit Sinusitis Screening for colon cancer Wellness examination Additional Source Comments (unrecognized sect ion and content) No Status Records FoundNo Status Records Found INFORMATION SOURCE (unrecogn ized section and content) DATE CREATED AUTHOR 04/30/2022 [facility] DATE CREATED AUTHOR AUTHOR'S ORGANIZ ATION 07/26/2022 [facility] [employer] Teams (unrecognized sec tion and content) Team Status: Active Member Role Status Dates Eduardo Gerald Sina , DO Primary Care Provider Active Team Status: Inactive Member Role Status Dates CASSIDY [place] Attending Provider Active Team Status: Inactive Member Role Status Dates Eduardo Gerald Sina , DO Primary Care Provider Active Ciara Garcia CNP Attending Provider Active Team Status: Active Member Role Status Dates Eduardo Andino , DO Primary Care Provider Active Team Status: Active Member Role Status Dates Eduardo Sina , Primary Care Provider Active Start: September 25, 2023 Vesta Crawley LPN Attending Provider Active St art: September 25, 2023 Team Status: Inactive Member Role Status Dates Eduardo Andino , DO Primary Care Provider Active Start: October 04, 2023 End: October 04, 2023 Dena Cornejo APRN Attending Provider Active Start: October 04, 2023 End: October 04, 2023 Team Status: Inactive Member Role Status Dates Eduardo Andino , DO Primary Care Provide r, Attending Provider Active Start: October 06, 2023 End: October 06, 2023 Goals (unrecognized section and content) Goals may be documented in a n alternate sectionNo InformationGoals may be documented in an alternate sectionGoals may be documented in an alternate section REASON FOR VISIT (unrecogniz ed section and content) sinus infection, giving him tooth pain FOR RECORDS PERTAINING TO PATIENTS WHO ARE OR HAVE BEEN ENROLLED IN A CHEMICAL DEPENDENCY/SUBSTANCEABUSE PROGRAM, SOME INFORMATION MAY BE OMITTED. This clinical summary was aggregated from multiple sources. Caution should be exercised in using it in the provision of clinical care. This summary normalizes information from multiple sources, and as a consequence, information in this document may materially change the coding, format and clinical context of patient data. In addition, data may be omitted in some cases. CLINICAL DECISIONS SHOULD BE BASED ON THE PRIMARY CLINICAL RECORDS. [employer] provides no warranty or guarantee of the accuracy or completeness of information in this document.
== END 2023-11-02 07:53 | disposition home or self-care (01) ==
LOC: CT 07:52
PROVIDERS: PCP Internal Medicine; Visit Provider Internal Medicine
DX: J01.00 Acute maxillary sinusitis, unspecified (principal)
CPT/HCPCS: 70486

== ENCOUNTER 2024-10-10 11:07 | Outpatient (OUT) | payer BC, SELFPAY ==
--- OUTSIDE RECORDS SUMMARY | 2023-11-30 07:30 | XMS_ITS ---
Author Name Auto Generated Organization [facility] Care Team Providers Care Bell Ringer Name Role Phone Eduardo Andino Primary Care Unavailable Asaad, Imad Attending Unavailable Asaad, Imad Admitting Unavailable PROBLEMS No Problem Records Found PROCEDURES No Procedure Records Found RESULTS No Result Records Found ALLERGIES DATE TYPE / CODE NAME / CODE REACTION SEVERITY SOURCE 11/30/2023 Drug Allergy/1949652 02(SNOMED CT) sulfamethoxazo le/[id number]( RXNORM) Unknown Reaction Unknown [facility] 11/30/2023 Drug Allergy/7261361 02(SNOMED CT) trimethoprim/F [id number](RXNO RM) Unknown Reaction Unknown [facility] 11/30/2023 Drug Allergy/5341385 02(SNOMED CT) meloxicam/[id number](RXNORM) Rash Unknown [facility] ENCOUNTERS ADMIT/DISCHARGE ACCOUNT NUMBER ADMITTING ENCOUNTER CLASS LOCATION SOURCE 11/30/2023/ 4 [id number] Asaad, Imad [facility] ENCOUNTER GUARANTOR PAYER SUBSCRIBER SOURCE 11/30/2023 Vincent Blakely[address] [address]Pnq: (HP) Primary Insurance:Self PayPolicy Number: Effective Date:2023-11-30 [facility]
[2024-10-10 11:33] LABS: Hematocrit 39.7 % (42.0-54.0); Hemoglobin 13.7 g/dL (14.0-18.0); Immature Granulocytes Abs Auto 0.01 10^3/uL (0.00-0.03); Immature Granulocytes Pct Auto 0.2 % (0.0-0.5); Lymphocytes Absolute Auto 1.4 10^3/uL (1.2-3.8); Mean Corpuscular HGB Conc 34.5 g/dL (29.9-35.2); Mean Corpuscular Hemoglobin 31.1 pg (25.9-34.0); Mean Corpuscular Volume 90.2 fL (80.0-94.0); Platelet Count 209 10^3/uL (150-450); Red Blood Count 4.40 10^6/uL (4.70-6.10); White Blood Count 5.9 10^3/uL (4.0-11.0)
[2024-10-10 11:44] LABS: Alanine Aminotransferase 26 U/L (16-63); Albumin Globulin Ratio 1.3; Albumin Level 4.0 g/dL (3.4-5.0); Alkaline Phosphatase 92 U/L (46-116); Anion Gap 10.5; Aspartate Amino Transferase 18 U/L (15-37); Blood Urea Nitrogen 18.0 mg/dL (7.0-18.0); Calcium 9.3 mg/dL (8.5-10.1); Carbon Dioxide 31.4 mmol/L (21.0-32.0); Chloride 102 mmol/L (98-107); Cholesterol 176 mg/dL (<=200); Estimated GFR (African America >60 (>=60 mL/min/1.73m^2); Estimated GFR (Non-African Ame >60 (>=60 mL/min/1.73m^2); Globulin 3.2 g/dL; Glucose 104 mg/dL (74-106); HDL Cholesterol 69 mg/dL (40-60); Potassium 3.9 mmol/L (3.5-5.1); Sodium 140 mmol/L (136-145); Total Protein 7.2 g/dL (6.4-8.2); Triglycerides 41 mg/dL (<=150); VLDL CHOLESTEROL 8.2 mg/dL
== END 2024-10-10 11:08 | disposition home or self-care (01) ==
LOC: LAB 11:09
PROVIDERS: PCP Internal Medicine; Visit Provider Internal Medicine
DX: Z00.00 Encounter for general adult medical examination without abnormal findings (principal)
CPT/HCPCS: 36415; 80053; 80061; 85025